=== PATIENT | female | born 1980 | race Two or more races ===

== ENCOUNTER 2018-03-19 00:31 | Emergency (ER) | payer MEDICAID ==
--- NOTE | 2018-03-19 01:03 | C.PDOC ---
History Of Present Illness contrary to triage note, pt was brought in by her boyfriend who states that the pt texted him about 4 weeks ago stating that she wanted to kill herself. Patient now denies any suicidal or homicidal ideation., patient has been using drugs. She refuses to be examined. Time Seen by Provider: 03/19/18 01:03 Chief Complaint (Nursing): Psychiatric Evaluation History Per: Patient History/Exam Limitations: no limitations Onset/Duration Of Symptoms: Days Current Symptoms Are (Timing): Still Present Suicide/Self Injury Attempted (Context): None Modifying Factor(s): Narcotics Severity: None Pain Scale Rating Of: 0 Associated Symptoms: Anxiety Involuntary Hold By: None Recent travel outside of the [place]: No Additional History Per: Family Past Medical History Reviewed: Historical Data, Nursing Documentation, Vital Signs Family History: States: No Known Family Hx - Social History Hx Alcohol Use: No Hx Substance Use: Yes - Immunization History Hx Tetanus Toxoid Vaccination: No Hx Influenza Vaccination: No Hx Pneumococcal Vaccination: No Review Of Systems Constitutional: Negative for: Fever, Chills Cardiovascular: Negative for: Chest Pain Respiratory: Negative for: Shortness of Breath Gastrointestinal: Negative for: Abdominal Pain Genitourinary: Negative for: Dysuria Musculoskeletal: Negative for: Back Pain Skin: Positive for: Rash Neurological: Negative for: Weakness Psych: Positive for: Anxiety. Negative for: Suicidal ideation Physical Exam - Physical Exam Appears: Non-toxic Neurological/Psych: Oriented x3 Gait: Steady ED Course And Treatment Progress Note: patient was seen by the sanitation worker cleaning machinery. again the patient denies any suicidal or homicidal ideation and wants to go home. As per dr hernandez, pt ok to be discharged home. Patient encouraged to return if any suicidal or homicidal ideation occur or if she would like to try detox. Pt is aaox3 and competent and signed ama form. Against Medical Advice - AMA Patient Left Against Medical Advice: The patient declines admission to the hospital and wishes to leave the Emergency Department. This action is against my medical advice. This decision was made with informed refusal. The patient was told that admission to the hospital is necessary. Explanation of the reasons why were discussed. The risks of leaving were explained to the patient and include, but are not limited to, worsening of known or currently unknown conditions, permanent disability and from undiagnosed or untreated conditions. The patient has the capacity to make this informed decision and understands my explanation of the current medical problem and risks of leaving. The patient voluntarily accepts these risks and signed an AMA form documenting our conversation. The patient was given the opportunity to ask questions and reconsider. The patient was encouraged to return to the Emergency Department at any time for further care. Disposition Counseled Patient/Family Regarding: Studies Performed, Diagnosis - Disposition Referrals: [facility] at [facility] [Outside] Disposition: AGAINST MEDICAL ADVICE Disposition Time: 01:03 Condition: FAIR Additional Instructions: Please return if symptoms recur Instructions: Polysubstance Abuse (DC) Forms: Kaggle (Greenlandic) - Clinical Impression Clinical Impression: Polysubstance abuse
== END 2018-03-19 01:03 | disposition left against medical advice (07) ==
LOC: C.ER 00:31
DX: F19.10 Other psychoactive substance abuse, uncomplicated (principal)